=== PATIENT | female | born 1955 | race Caucasian/White ===

== ENCOUNTER 2022-03-25 19:54 | Emergency (ER) | payer MEDICARE ==
[~2022-03-25] VITALS: Ht 162.6 cm; Wt 100.0 kg
--- NOTE | 2022-03-25 20:11 | PHYS DOC ---
General Adult EDM: Chief Complaint: NAUSEA/VOMITING/DIARRHEA HPI: HPI: Patient is a 66 year old female who presents with went to [employer] for dinner approximately an hour ago had a cheeseburger and some fries. She states that she is rating taste very well. They then went to [employer] got in the parking lot and she states she began vomiting and got dizzy. EMS got there and states that the patient the patient was orthostatic hypotensive. She denies abdominal pain, chest pain, shortness of breath, headache, syncope, fall, hitting her head, numbness or tingling, focal weakness, the room spinning, vision change. Review of Systems: Review of Systems: Constitutional: Denies fever or chills. [] Eyes: Denies change in visual acuity. [] HENT: Denies nasal congestion or sore throat. [] Respiratory: Denies cough or shortness of breath. [] Cardiovascular: Denies chest pain or edema. [] GI: Denies abdominal pain, +nausea, +vomiting, denies bloody stools or diarrhea. [] : Denies dysuria. [] Musculoskeletal: Denies back pain or joint pain. [] Integument: Denies rash. [] Neurologic: Denies headache, focal weakness or sensory changes. +dizziness[] Endocrine: Denies polyuria or polydipsia. [] Lymphatic: Denies swollen glands. [] Psychiatric: Denies depression or anxiety. [] Heart Score: C/O Chest Pain: No HEART Score for Chest Pain: HEART Score for Chest Pain Response (Comments) Value History Slighlty/Non-Suspicious 0 ECG Normal 0 Age > 65 2 Risk Factors 1 or 2 Risk Factors 1 Troponin < Normal Limit 0 Total 3 Risk Factors: Risk Factors: DM, Current or recent (<one month) smoker, HTN, HLP, family history of CAD, obesity. Risk Scores: Score 0 - 3: 2.5% MACE over next 6 weeks - Discharge Home Score 4 - 6: 20.3% MACE over next 6 weeks - Admit for Clinical Observation Score 7 - 10: 72.7% MACE over next 6 weeks - Early Invasive Strategies Current Medications: Current Medications Medications (Trade) Dose Ordered Sig/Jalyn Start Time Stop Time Status Last Admin Dose Admin Famotidine (Pepcid Vial) 20 mg 1X ONCE 03/25/22 20:15 03/25/22 20:16 UNV Ondansetron HCl (Zofran) 4 mg 1X ONCE 03/25/22 20:15 03/25/22 20:16 UNV Sodium Chloride 1,000 ml @ 1,000 mls/hr Q1H 03/25/22 20:15 03/25/22 21:14 UNV Allergies: Allergies: Allergies Coded Allergies Type Severity Reaction Last Updated Verified Penicillins Allergy Unknown 03/25/22 Yes Physical Exam: PE: Constitutional: Well developed, well nourished, no acute distress, non-toxic appearance. [] HENT: Normocephalic, atraumatic, bilateral external ears normal, oropharynx moist, no oral exudates, nose normal. [] Eyes: PERRLA, EOMI, conjunctiva normal, no discharge. [] Neck: Normal range of motion, no tenderness, supple, no stridor. [] Cardiovascular:Heart rate regular rhythm, no murmur [] Lungs & Thorax: Bilateral breath sounds clear to auscultation [] Abdomen: Bowel sounds normal, soft, no tenderness, no masses, no pulsatile masses. [] Skin: Warm, dry, no erythema, no rash. [] Back: No tenderness, no CVA tenderness. [] Extremities: No tenderness, no cyanosis, no clubbing, ROM intact, no edema. [] Neurologic: Alert and oriented X 3, normal motor function, normal sensory function, no focal deficits noted. [] Psychologic: Affect normal, judgement normal, mood normal. [] Normal physical exam EKG: EK and read by Dr. Renteria as sinus rhythm and no STEMI Radiology/Procedures: Radiology/Procedures: [] Impression: [facility] [address] [place], [place] [id number] IMAGING REPORT Signed PATIENT: DOMINIQUE ARIAS ACCOUNT: [id number] : 1955 LOCATION: ER AGE: 66 SEX: F EXAM STATUS: REG ER ORD. PHYSICIAN: ELIDA MATTA APRN REASON: VOMITING, DIZZINESS PROCEDURE: PORTABLE CHEST 1V Exam: Chest one view INDICATION: Vomiting, dizzy TECHNIQUE: Frontal view of the chest Comparisons: None FINDINGS: The cardiomediastinal silhouette and pulmonary vessels are within normal limits. The lung and pleural spaces are clear. IMPRESSION: No acute cardiopulmonary process. Electronically signed by: Gin Mcginnis MD (03/25/2022 9:28 PM) [facility] DICTATED and SIGNED BY: GIN MCGINNIS MD DATE: 03/25/222127 Course & Med Decision Making: Course & Med Decision Making Pertinent Labs and Imaging studies reviewed. (See chart for details) See HPI. Alert and oriented x4. Speaks in full clear sentences. She states the dizziness is better. Abdomen soft and nontender. No nystagmus. Skin pink warm and dry. Vital signs are within normal limits. 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 Positive orthostatics. Layin/72, 100; sittin/75, 100; standing 123/69, 108. I ordered another normal saline bolus of 500. She is already gotten 1 L. Patient is refusing more fluids. She states she is feeling great and ready to go. She denies any dizziness or any dizziness upon standing. He has not given us a urine sample as of yet. Patient is refusing to give a urine sample or to stay any longer. She states that she is signing out AMA. I spoke to patient to make sure the patient understands that I cannot fully diagnose her or treat her without having all the blood work back, urine. This could result in disability and/or . She states her understanding. Patient is ambulatory with a steady gait. [] [place] Disclaimer: Reanna Disclaimer: This electronic medical record was generated, in whole or in part, using a voice recognition dictation system. Departure Departure Impression: Primary Impression: Left against medical advice Additional Impression: Nausea & vomiting Qualified Codes: R11.2 - Nausea with vomiting, unspecified Disposition: 07 LEFT AGAINST MEDICAL ADVICE Condition: STABLE SIGRIDELIDA M TWISTER HAND March 25, 2022 20:11
[2022-03-25] MEDS ORDERED: ONDANSETRON PF 4 MG/2 ML VIAL. IVP ONE (20:15)
[2022-03-25] MEDS ORDERED: FAMOTIDINE 20 MG/2 ML VIAL IVP ONE (20:15)
[2022-03-25] MEDS ORDERED: IV NORMAL SALINE 1000ML BAG 1,000 ML IV SCH (20:15)
[2022-03-25 20:50] LABS: BASO % 0 % (0-3); EOS # 0.2 x10^3/uL (0.0-0.7); EOS % 1 % (0-3); HEMATOCRIT 42.8 % (36.0-47.0); HEMOGLOBIN 14.4 g/dL (12.0-15.5); LYMPH # 2.6 x10^3/uL (1.0-4.8); LYMPH % 17 % (24-48); MEAN CORPUSCULAR HEMOGLOBIN 30 pg (25-35); MEAN CORPUSCULAR HGB CONC 34 g/dL (31-37); MEAN CORPUSCULAR VOLUME 88 fL (79-100); MONO % 6 % (0-9); NEUT # 11.6 x10^3/uL (1.8-7.7); NEUT % 75 % (31-73); PLATELET COUNT 298 x10^3/uL (140-400); RED BLOOD COUNT 4.87 x10^6/uL (3.50-5.40); RED CELL DISTRIBUTION WIDTH 13.7 % (11.5-14.5); WHITE BLOOD COUNT 15.5 x10^3/uL (4.0-11.0)
[2022-03-25 21:11] LABS: INFLUENZA A PATIENT NEGATIVE (NEGATIVE); INFLUENZA B PATIENT NEGATIVE (NEGATIVE)
[2022-03-25] MEDS ORDERED: IV NORMAL SALINE 500ML BAG 500 ML IV ONE (21:30)
[2022-03-25 21:31] LABS: CALCIUM 8.7 mg/dL (8.5-10.1); GFR 55.5; POTASSIUM 3.9 mmol/L (3.5-5.1)
--- NOTE | 2022-03-25 21:31 | RAD ---
Exam: Chest one view INDICATION: Vomiting, dizzy TECHNIQUE: Frontal view of the chest Comparisons: None FINDINGS: The cardiomediastinal silhouette and pulmonary vessels are within normal limits. The lung and pleural spaces are clear. IMPRESSION: No acute cardiopulmonary process. Electronically signed by: Gin Hogan MD (03/25/2022 9:28 PM) [facility]
[2022-03-25 21:37] VITALS: BP 149/88
[2022-03-25 21:37] LABS: ALBUMIN 3.6 g/dL (3.4-5.0); ALBUMIN/GLOBULIN RATIO 1.1 (1.0-1.7); MAGNESIUM 2.1 mg/dL (1.8-2.4); TOTAL BILIRUBIN 0.2 mg/dL (0.2-1.0); TOTAL PROTEIN 6.9 g/dL (6.4-8.2)
--- NOTE | 2022-03-26 01:25 | EKG ---
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
== END 2022-03-25 21:50 | disposition left against medical advice (07) ==
LOC: ER 19:54
DX: R11.2 Nausea with vomiting, unspecified (principal); R42 Dizziness and giddiness; Z20.822 Contact with and (suspected) exposure to COVID-19; Z88.0 Allergy status to penicillin
CPT/HCPCS: 36415; 71045; 80053; 83690; 83735; 84484; 85025; 87428; 93005; 96361; 96374; 96375; 99285; J2405; J3490; J7030